=== PATIENT | female | born 1945 | race Caucasian/White ===

== ENCOUNTER 2018-06-15 08:08 | Outpatient (CLI) | payer MEDICARE, BC ==
[2018-06-15] VITALS (7 sets, daily range): BP systolic 133–150; BP diastolic 77–100
[~2018-06-15] VITALS: Ht 160 cm; Wt 57.2 kg
[2018-06-15] MEDS ORDERED: ASPI-611 PO (09:29)
[2018-06-15] MEDS ORDERED: GLUC-131 PO (09:29)
[2018-06-15] MEDS ORDERED: OMEG-107 PO (09:29)
[2018-06-15] MEDS ORDERED: MULT-38 PO (09:29)
[2018-06-15] MEDS ORDERED: CAFFEINE CITRATE 60 MG/3 ML injection vial IV PRN (09:35)
[2018-06-15] MEDS ORDERED: normal saline 500ml IV soln 500 ML IV ONE (09:35)
[2018-06-15] MEDS ORDERED: nitroGLYCERIN 0.4mg SUBLingual tab SL PRN (09:35)
[2018-06-15] MEDS ORDERED: metoprolol tartrate 1mg/ml inj IV PRN (09:35)
[2018-06-15] MEDS ORDERED: regadenoson 0.4mg/5ml syringe IV ONE ×2 (09:35→10:19)
[2018-06-15] MEDS ORDERED: CAFFEINE CITRATE 60 MG/3 ML injection vial IV ONE (10:19)
== END 2018-06-15 23:59 | disposition home or self-care (01) ==
LOC: RAD 08:08
PROVIDERS: ATTEND Internal Medicine Cardiovascular Disease
DX: R07.9 Chest pain, unspecified (principal)
CPT/HCPCS: 78452; 93017; A9500; J7030

== ENCOUNTER 2018-07-28 06:54 | Day surgery (SDC) | payer MEDICARE, BC ==
[2018-07-27 14:16] LABS: BASOPHILS % (AUTO) 0.6 % (0-1); EOSINOPHILS # (AUTO) 0.1 X10'3 (0-0.9); EOSINOPHILS % (AUTO) 2.1 % (0-6); HEMATOCRIT 39.7 % (35.0-45.0); HEMOGLOBIN 13.8 g/dl (12.0-16.0); LYMPHOCYTES # (AUTO) 1.8 X10'3 (1.1-4.8); MEAN CORPUSCULAR HEMOGLOBIN 35.2 PG (27.0-31.0); MEAN CORPUSCULAR HGB CONC 34.7 % (33.0-36.5); MEAN CORPUSCULAR VOLUME 101.4 FL (78-98); MEAN PLATELET VOLUME 8.7 FL (7.4-10.4); MONOCYTES # (AUTO) 0.3 X10'3 (0-0.9); MONOCYTES % (AUTO) 5.3 % (2-12); NEUTROPHILS # (AUTO) 3.8 X10'3 (1.8-7.7); PLATELET COUNT 197 X10'3 (140-440); RED BLOOD COUNT 3.91 X10'6 (4.20-5.60); RED CELL DISTRIBUTION WIDTH 13.2 % (11.5-14.5); WHITE BLOOD COUNT 6.1 X10'3 (4.5-11.0)
[2018-07-27 14:27] LABS: ALBUMIN 3.6 G/DL (3.4-5.0); ANION GAP 7 (8-16); BLOOD UREA NITROGEN 27 MG/DL (7-18); BUN/CREATININE RATIO 30.3 (6.6-38.0); CALCIUM 11.1 MG/DL (8.5-10.1); CHLORIDE 108 MMOL/L (99-107); CREATININE 0.89 MG/DL (0.40-0.90); GLUCOSE 83 MG/DL (70-104); POTASSIUM 4.3 MMOL/L (3.5-5.1); SODIUM 143 MMOL/L (135-145); TOTAL CARBON DIOXIDE 28.3 MMOL/L (24-32); eGFR 62 ML/MIN
[2018-07-27 14:28] LABS: PARTIAL THROMBOPLASTIN TIME 26 SECONDS (22-32); PROTHROMBIN TIME 10.8 SECONDS (9.0-12.0)
[~2018-07-28] VITALS: Ht 160 cm; Wt 55.9 kg
[2018-07-28] VITALS (12 sets, daily range): BP systolic 95–147; BP diastolic 63–84
[~2018-07-28 06:54] MED LIST: ASPI-611 PO; GLUC-131 PO; MULT-38 PO; OMEG-107 PO
[2018-07-28] MEDS ORDERED: LIDOcaine/PRILOcaine 5gm cream TP ONE (07:05)
[2018-07-28] MEDS ORDERED: CHOL100046 PO (07:23)
[2018-07-28] MEDS ORDERED: CALC-159 PO (07:23)
[2018-07-28] MEDS ORDERED: GLUC500T12 PO (07:23)
[2018-07-28] MEDS ORDERED: OMEG1CAP13 PO (07:23)
[2018-07-28] MEDS ORDERED: LORazepam 0.5 MG tablet PO PRN (07:30)
[2018-07-28] MEDS ORDERED: normal saline 1000ml 1,000 ML IV SCH (07:30)
[2018-07-28] MEDS ORDERED: diphenhydrAMINE 25mg capsule PO PRN (07:30)
[2018-07-28] MEDS ORDERED: heparin 1,000unit/ml 10ml vial 10 ML ONE (07:48)
[2018-07-28] MEDS ORDERED: fentaNYL/PF 50MCG/1 ML 2ML syringe ONE (07:48)
[2018-07-28] MEDS ORDERED: nitroGLYCERIN-Tridil 50MG/D5W 250 ML IV ONE (07:48)
[2018-07-28] MEDS ORDERED: midazolam 2 mg/2 ml injection ONE (07:48)
[2018-07-28] MEDS ORDERED: LIDOcaine 1% 30ml preserv. free vial ONE (07:48)
[2018-07-28] MEDS ORDERED: iohexol 350 MG/ML 50ML vial IV ONE (07:49)
[2018-07-28] MEDS ORDERED: iohexol 350MG/ML 100ml bottle IV ONE (07:49)
[2018-07-28] MEDS ORDERED: verapamil 2.5 mg/ml inj IV ONE (07:53)
[2018-07-28 12:01] LABS: ISTAT HGB ART 11.9 g/dl (12.0-16.0); ISTAT Hct ART 35 %PCV (35-48); ISTAT O2 SATURATION ARTERIAL 93 % (95-98); ISTAT SOURCE ART
[2018-07-28 12:01] LABS: ISTAT Hct MIX 34 %PCV (35-48); ISTAT O2 SATURATION MIX VENOUS 68 % (60-80); ISTAT SOURCE MIX
== END 2018-07-28 16:00 | disposition home or self-care (01) ==
LOC: SSTAY O 06:54
PROVIDERS: ATTEND Internal Medicine Cardiovascular Disease
DX: I25.10 Atherosclerotic heart disease of native coronary artery without angina pectoris (principal); I34.0 Nonrheumatic mitral (valve) insufficiency; I35.8 Other nonrheumatic aortic valve disorders; M19.90 Unspecified osteoarthritis, unspecified site; E78.5 Hyperlipidemia, unspecified; Z88.2 Allergy status to sulfonamides; Z72.89 Other problems related to lifestyle; Z85.828 Personal history of other malignant neoplasm of skin; Z79.82 Long term (current) use of aspirin; Z86.711 Personal history of pulmonary embolism; Z98.890 Other specified postprocedural states; Z79.899 Other long term (current) drug therapy; Z88.8 Allergy status to other drugs, medicaments and biological substances; Z80.1 Family history of malignant neoplasm of trachea, bronchus and lung; Z82.49 Family history of ischemic heart disease and other diseases of the circulatory system; Z83.6 Family history of other diseases of the respiratory system; Z81.8 Family history of other mental and behavioral disorders
CPT/HCPCS: 36415; 80048; 82803; 85014; 85025; 85610; 85730; 93005; 93312; 93325; 93460; 99152; 99153; A6257; A6258; A6402; C1769; J1644; J2250; J3010; J3490; J7030; Q9967; A4620; Q0163